=== PATIENT | female | born 1945 | race African-American/Black ===

== ENCOUNTER 2023-12-22 19:16 | Inpatient (IN) ==
--- NOTE | 2023-12-22 20:15 | DR.NAUSEAF ---
HPI Time Seen Time Seen by Provider: 12/22/23 20:15 Primary Care Physician Primary Care Physician: LIV Madsen Chief Complaint Doctors Comments: Patient had a Rt knee replaced at [facility] in [place] on 12/09/2023.When she was d/c from the hospital on 3 new medication: meloxicam 15mg po qd/bactrim ds/colace. Patient has had nausea and vomiting since 12/20/23. She has also had decreased activity. Family brought her to the hospital for evaluaton because they are concerned that she is not herself. Patient denies: haile,trauma or fall since the day after surgery, n,v,chest pain,abdl pain,back pain,sob. Chief Complaint:: PT AMBULATORY IN ED WITH C/O N/V SINCE SATURDAY. COVID-19 Coronavirus risk:travel/contact w/high risk person: No Has patient experienced Coronavirus symptoms: No Source History Provided: Patient and Family Member Mode of Arrival Mode of Arrival: Ambulatory Timing Onset of Chief Complaint: 12/20/23 PMH PMH Past Medical History: Yes Past Medical History: Anemia, Arthritis, Dyslipidemia, GERD, Hypertension and Hypothyroidism Past Surgical History: Yes Surgical History: Ortho Surgery Past Surgical History Comment: RIGHT KNEE Family History History of Family Medical Conditions: Yes Family Medical History: Diabetes Mellitus, Heart Failure and Hypertension Social History Does patient currently use any type of tobacco product: No Have you used tobacco products in the last 12 months: No Type of Tobacco Use: None Does any household member use tobacco: No Alcohol Use: None Do you use any recreational Drugs:: No Lives With: Family Lives Where: Home Travel Risk Coronavirus risk:travel/contact w/high risk person: No Has patient experienced Coronavirus symptoms: No Infectious screening In the last 2 months have you had wt loss of >10#?: NO Have you had fever, night sweats or hemotysis?: No Have you traveled outside the country in the last 6 months?: No Isolation: Standard ROS Review of Systems Constitutional: Malaise and Other (decreased activity) Eyes: No Symptoms Reported ENTM: No Symptoms Reported Respiratoy: No Symptoms Reported Cardiovascular: No Symptoms Reported Gastrointestinal/Abdominal: Nausea and Vomiting Genitourinary: No Symptoms Reported Neurological: No Symptoms Reported Musculoskeletal: No Symptoms Reported Integumentary: No Symptoms Reported Hematologic/Lymphatic: No Symptoms Reported Endocrine: No Symptoms Reported Psychiatric: No Symptoms Reported All Other Systems: Reviewed and Negative PE Vital Signs Vitals: Vital Signs Temperature 98.8 F Pulse Rate 69 Pulse Rate 72 Pulse Rate 72 Pulse Rate 71 Pulse Rate 73 Pulse Rate 71 Pulse Rate 73 Pulse Rate 74 Pulse Rate 66 Pulse Rate 67 Pulse Rate 68 Pulse Rate 66 Pulse Rate 69 Pulse Rate 75 Pulse Rate 69 Pulse Rate 72 Pulse Rate 70 Pulse Rate 65 Pulse Rate 67 Respiratory Rate 21 Respiratory Rate 14 Respiratory Rate 14 Respiratory Rate 14 Respiratory Rate 20 Respiratory Rate 14 Respiratory Rate 24 Respiratory Rate 18 Respiratory Rate 16 Respiratory Rate 16 Respiratory Rate 15 Respiratory Rate 15 Respiratory Rate 16 Respiratory Rate 21 Respiratory Rate 18 Respiratory Rate 16 Respiratory Rate 18 Respiratory Rate 15 Respiratory Rate 20 Blood Pressure 170/73 Blood Pressure 170/73 Blood Pressure 162/72 O2 Sat by Pulse Oximetry 95 General Limitations: No Limitations General Appearance: Alert and In No Apparent Distress Head Head Exam: Normal Inspection Eyes Eye exam: Normal Appearance ENT ENT Exam: Normal Exam Neck Neck Exam: Normal Inspection Chest Chest Inspection: Normal Inspection Respiratory Respiratory Exam: Normal Lung Sounds Bilat Respiratory Exam: Bilateral: Clear to Auscultation Cardiovascular Cardiovascular Exam: Regular Rate and Normal Rhythm Abdominal Exam Abdominal Exam: Normal Inspection, Normal Bowel Sounds and Soft Rectal Rectal Exam: Deferred External Exam: Female: Deferred : Speculum Exam (Female): Deferred : Bimanual Exam (female): Deferred Extremities Extremities Exam: Normal Inspection Back Back Exam: Normal Inspection Neurologic Neurological Exam: Alert and Oriented X3 Psychiatric Psychiatric Exam: Normal Affect and Normal Mood Skin Skin Exam: Warm, Dry, Intact and Normal Color MDM Differential Diagnosis Differential Diagnosis: Considerations may Include:: Drug Toxicity Differential Diagnosis Comment: DDx: electrolyte disorder,SOPHIE,dehydration COURSE Treatment Treatment: Patient was brought to a monitored room and iv access was initiated and labs were drawn. Patient's K was called from the lab it was 6.3.The repeat K was also 6.3. Patient 's ekg was NSR no QRS widening. Patient received: Calcium gluconate/regular insulin iv/Amp of D50 iv/amp Na HC03 iv. Patient's repeat BMP revealed K 5.1/Bun 49/creat 3.82. Discussed case with Dr Stein. He has accpted patint to his service for further treatment. Will hold the bactrim ds and meloxicam. Concerned that these 2 meds may have contributed to the SOPHIE in addition to dehydration. ROR Labs Reviewed 12/22/23 20:30 12/23/23 00:20 Laboratory: WBC 10.3 X10^3/uL (3.6-10.0) H 12/22/23 20:30 RBC 2.66 X10^6/uL (3.5-5.4) L 12/22/23 20:30 Hgb 8.6 g/dL (12.0-16.0) L 12/22/23 20:30 Hct 25.2 % (36.0-47.0) L 12/22/23 20:30 MCV 94.8 fL (80.0-100.0) 12/22/23 20:30 MCH 32.2 pg (27.0-34.0) 12/22/23 20: MCHC 34.0 g/dL (33.0-35.0) 12/22/23 20:30 RDW 13.4 % (11.6-16.5) 12/22/23 20:30 Plt Count 277 X10^3/uL (150.0-450.0) 12/22/23 20:30 MPV 7.2 fL (7.4-11.0) L 12/22/23 20:30 Neut % (Auto) 60.9 % (42.0-75.0) 12/22/23 20:30 Lymph % (Auto) 27.0 % (21.0-51.0) 12/22/23 20:30 [place] % (Auto) 9.8 % (0.0-13.0) 12/22/23 20:30 Eos % (Auto) 2.1 % (0.9-2.9) 12/22/23 20:30 Baso % (Auto) 0.2 % (0.2-1.0) 12/22/23 20:30 Neut # (Auto) 6.3 x10^3/uL (2.2-4.8) H 12/22/23 20:30 Lymph # (Auto) 2.8 X10^3/uL (1.3-2.9) 12/22/23 20:30 [place] # (Auto) 1.0 x10^3/uL (0.3-0.8) H 12/22/23 20:30 Eos # (Auto) 0.2 x10^3/uL (0.0-0.2) 12/22/23 20:30 Baso # (Auto) 0.0 X10^3/uL (0.0-0.1) 12/22/23 20:30 Absolute Nucleated RBC 0.0 /100WBC 12/22/23 20:30 Sodium 140 mmol/L (136-145) 12/23/23 00:20 Corrected Sodium TNP 12/23/23 00:20 Potassium 5.1 mmol/L (3.5-5.1) 12/23/23 00:20 Chloride 106 mmol/L (98-107) 12/23/23 00:20 Carbon Dioxide 23.7 mmol/L (21-32) 12/23/23 00:20 BUN 49 mg/dL (7-18) H 12/23/23 00:20 Creatinine 3.82 mg/dL (0.55-1.02) H 12/23/23 00:20 Est GFR (MDRD) Af Amer 15 (>60) L 12/23/23 00:20 Est GFR (MDRD) Non-Af 12 (>60) L 12/23/23 00:20 Glucose 72 mg/dL (65-99) 12/23/23 00:20 Lactic Acid 1.5 mmol/L (0.4-2.0) 12/22/23 20:30 Calcium 9.4 mg/dL (8.5-10.1) 12/23/23 00:20 Corrected Calcium TNP 12/22/23 20:30 Total Bilirubin 0.10 mg/dL (0.2-1.0) L 12/22/23 20:30 AST 18 Units/L (15-37) 12/22/23 20:30 ALT 12 Units/L (12-78) 12/22/23 20:30 Alkaline Phosphatase 104 Units/L (46-116) 12/22/23 20:30 Total Protein 7.3 g/dL (6.4-8.2) 12/22/23 20:30 Albumin 3.5 g/dL (3.4-5.0) 12/22/23 20:30 Globulin 3.8 g/dL (2.5-4.5) 12/22/23 20:30 Albumin/Globulin Ratio 0.9 Ratio (1.1-2.1) L 12/22/23 20:30 Amylase 85 Units/L (25-115) 12/22/23 20:30 Lipase 53 Units/L (16-77) 12/22/23 20:30 Opioid Opioid Risk Tool Age ([place] box if 16-45): No History of Preadolescent Sexual Abuse: No Total: 0 Total Score Risk Category: Low Risk Copyright: Kip HAM predicting aberrant behaviors Discharge Plan Diagnosis Discharge Problem: SOPHIE (acute kidney injury), Acute hyperkalemia, Acute dehydration Discharge Plan Patient Disposition: ADMITTED INPATIENT Condition: Stable Prescriptions: No Action latanoprost 0.005 % drops 1 drp OPHTHALMIC (EYE) QPM gabapentin 600 mg tablet 300 mg PO TID meloxicam 15 mg tablet 15 mg PO QDAY lovastatin 40 mg tablet 40 mg PO QPM sulfamethoxazole-trimethoprim 800-160 mg tablet 1 tab PO BID pantoprazole 40 mg tablet,delayed release (DR/EC) 40 mg PO QDAY ferrous sulfate [FeroSul] 325 mg (65 mg iron) tablet 325 mg PO BID levothyroxine 125 mcg tablet 125 mcg PO QAM lisinopril-hydrochlorothiazide 20-25 mg tablet 1 tab PO QDAY montelukast 10 mg tablet 10 mg PO QDAY Health Concerns: Post Hospitalization: new medications and changes needed to prevent readmission or further decline. Pt educated and given instructions on all concerns. Plan of Treatment: Continue with present treatment and follow up plan. Pt is to keep follow up appointment as instructed and take medications as ordered. Orders to Discharge Patient Discharge Orders: Transfer (Routine); Ordered 12/23/23 Ordered By: Katelynn Yin Follow ups/Referrals Follow ups/Referrals: MANPREET PECK [Primary Care Provider] - 3 days Instructions Stand Alone Forms: Post Hospital Follow Up Care
[2023-12-22 20:37] LABS: BASOPHILS % (AUTO) 0.2 % (0.2-1.0); EOSINOPHILS # (AUTO) 0.2 x10^3/uL (0.0-0.2); EOSINOPHILS % (AUTO) 2.1 % (0.9-2.9); HEMATOCRIT 25.2 % (36.0-47.0); HEMOGLOBIN 8.6 g/dL (12.0-16.0); LYMPHOCYTES # (AUTO) 2.8 X10^3/uL (1.3-2.9); MEAN CORPUSCULAR HEMOGLOBIN 32.2 pg (27.0-34.0); MEAN CORPUSCULAR VOLUME 94.8 fL (80.0-100.0); MEAN PLATELET VOLUME 7.2 fL (7.4-11.0); MONOCYTES % (AUTO) 9.8 % (0.0-13.0); NEUTROPHILS # (AUTO) 6.3 x10^3/uL (2.2-4.8); NEUTROPHILS % (AUTO) 60.9 % (42.0-75.0); PLATELET COUNT 277 X10^3/uL (150.0-450.0); RED BLOOD COUNT 2.66 X10^6/uL (3.5-5.4); RED CELL DISTRIBUTION WIDTH 13.4 % (11.6-16.5); WHITE BLOOD COUNT 10.3 X10^3/uL (3.6-10.0)
[2023-12-22 20:51] LABS: ALANINE AMINOTRANSFERASE 12 Units/L (12-78); ALBUMIN 3.5 g/dL (3.4-5.0); ALKALINE PHOSPHATASE 104 Units/L (46-116); AMYLASE 85 Units/L (25-115); ASPARTATE AMINO TRANSFERASE 18 Units/L (15-37); BLOOD UREA NITROGEN 52 mg/dL (7-18); CALCIUM 9.3 mg/dL (8.5-10.1); CARBON DIOXIDE 26.4 mmol/L (21-32); CHLORIDE 104 mmol/L (98-107); COR NA(FOR HYPERGLY) 138 mmol/L (136-145); CREATININE 4.02 mg/dL (0.55-1.02); GLUCOSE 116 mg/dL (65-99); LIPASE 53 Units/L (16-77); POTASSIUM 6.3 mmol/L (3.5-5.1); SODIUM 138 mmol/L (136-145); TOTAL PROTEIN 7.3 g/dL (6.4-8.2); eGFR NON BLACK RACES 11 (>60)
--- NOTE | 2023-12-22 21:40 | CT ---
CT ABDOMEN AND PELVIS WITHOUT CONTRAST HISTORY: Nausea vomiting and diarrhea with pain COMPARISON: None TECHNIQUE: Axial images were obtained of the abdomen and pelvis without IV contrast. Sagittal and coronal reform atted images were provided. All images were reviewed in a variety of windows and levels. RADIATION REDUCTION TECHNIQUE: Automated exposure control, adjustment of the mA or kV according to pa tient size, or iterative reconstruction techniques were used. FINDINGS: Please note that lack of IV contrast does limit evaluation of the soft tissues and vascular detail. The visualized lower lung zones are clear. The heart size is within normal limits. There is no evide nce of a pericardial effusion. The liver, spleen, pancreas, adrenal glands, and kidneys are grossly unremarkable. The gallbladder is grossly unremarkable. Calcified degenerating leiomyomatous uterus is noted. There is no evidence of stones or signs of obstructive uropathy. The stomach, small bowel, and colon are grossly unremarkable. There are no inflammatory changes in th e right lower quadrant to suggest secondary signs of acute appendicitis. The appendix is normal. Mode rate to large amount of fecal material is seen throughout the GI tract suggesting constipation. There is no evidence of retroperitoneal or mesenteric lymphadenopathy. The visualized bones demonstrate degenerative changes. There are no concerning lytic or blastic lesio ns identified. IMPRESSION: 1. There is no evidence of stones or signs of obstructive uropathy. 2. Calcified degenerating leiomyomatous uterus is noted. 3. Moderate to large amount of fecal material is seen throughout the GI tract suggesting constipation . THIS IS AN ELECTRONICALLY VERIFIED FINAL REPORT 12/22/2023 9:36 PM - Electronically signed by Christopher Gunn MD
--- NOTE | 2023-12-22 22:10 | EKG ---
Test Reason : hyperkalemia Blood Pressure : */* mmHG Vent. Rate : 70 BPM Atrial Rate : 70 BPM P-R Int : 152 ms QRS Dur : 84 ms QT Int : 382 ms P-R-T Axes : 67 -6 43 degrees QTc Int : 412 ms Normal sinus rhythm Minimal voltage criteria for LVH, may be normal variant ( R in aVL ) Cannot rule out Anterior infarct , age undetermined Abnormal ECG No previous ECGs available Confirmed by Andreas Naik MD ([id number]) on 12/23/2023 6:05:51 AM Referred By: Confirmed By: Andreas Naik MD
[2023-12-22] MEDS: SODIUM BICARBONATE 8.4% INJ ADULT IVP ONE (22:24)
[2023-12-22] MEDS: CALCIUM GLUCONATE 10% 1 G in NS 100 ML IV 100 ML IV ONE (22:24)
[2023-12-22] MEDS: D50W ABBOJECT SYR IV ONE (22:24)
[2023-12-22] MEDS: NovoLIN R (or HumuLIN R) IV PRN (22:25)
[2023-12-23 01:14] LABS: BLOOD UREA NITROGEN 49 mg/dL (7-18); CALCIUM 9.4 mg/dL (8.5-10.1); CARBON DIOXIDE 23.7 mmol/L (21-32); CHLORIDE 106 mmol/L (98-107); CREATININE 3.82 mg/dL (0.55-1.02); GLUCOSE 72 mg/dL (65-99); POTASSIUM 5.1 mmol/L (3.5-5.1); SODIUM 140 mmol/L (136-145); eGFR NON BLACK RACES 12 (>60)
[2023-12-23] MEDS ORDERED: CONSULT PHARMACY - POTASSIUM & MAGNESIUM XX SCH (03:00)
[2023-12-23 03:13] LABS: BILIRUBIN,URINE NEGATIVE (NEGATIVE); BLOOD/HEMOGLOBIN,URINE 1+ (NEGATIVE); GLUCOSE, URINE NEGATIVE (NEGATIVE); KETONES,URINE NEGATIVE (NEGATIVE); LEUKOCYTE ESTERASE ,URINE 3+ (NEGATIVE); NITRITES,URINE NEGATIVE (NEGATIVE); PROTEIN,URINE 1+ (NEGATIVE); UROBILINOGEN,URINE NORMAL (NORMAL)
[2023-12-23 03:20] VITALS: BMI 33.3
[2023-12-23 03:28] LABS: APPEARANCE,URINE CLOUDY (CLEAR); BACTERIA,URINE 1+ /HPF (NEGATIVE); COLOR,URINE YELLOW (YELLOW); SQUAMOUS EPITHELIAL CELL,UR MANY /HPF (NEGATIVE)
[2023-12-23] MEDS: NS 1,000 ML IV 1,000 ML IV SCH ×2 (03:56→14:58)
[2023-12-23] MEDS: NEURONTIN TAB 600 MG PO SCH (05:08)
[2023-12-23 05:45] LABS: BASOPHILS % (AUTO) 0.4 % (0.2-1.0); EOSINOPHILS # (AUTO) 0.2 x10^3/uL (0.0-0.2); EOSINOPHILS % (AUTO) 1.8 % (0.9-2.9); HEMATOCRIT 31.1 % (36.0-47.0); HEMOGLOBIN 10.2 g/dL (12.0-16.0); LYMPHOCYTES # (AUTO) 2.1 X10^3/uL (1.3-2.9); LYMPHOCYTES % (AUTO) 21.8 % (21.0-51.0); MEAN CORPUSCULAR HEMOGLOBIN 31.3 pg (27.0-34.0); MEAN CORPUSCULAR HGB CONC 32.9 g/dL (33.0-35.0); MEAN CORPUSCULAR VOLUME 95.1 fL (80.0-100.0); MEAN PLATELET VOLUME 8.2 fL (7.4-11.0); MONOCYTES # (AUTO) 0.8 x10^3/uL (0.3-0.8); MONOCYTES % (AUTO) 8.2 % (0.0-13.0); NEUTROPHILS # (AUTO) 6.5 x10^3/uL (2.2-4.8); NEUTROPHILS % (AUTO) 67.8 % (42.0-75.0); PLATELET COUNT 225 X10^3/uL (150.0-450.0); RED BLOOD COUNT 3.27 X10^6/uL (3.5-5.4); RED CELL DISTRIBUTION WIDTH 13.8 % (11.6-16.5); WHITE BLOOD COUNT 9.6 X10^3/uL (3.6-10.0)
[2023-12-23 05:50] LABS: ALANINE AMINOTRANSFERASE 13 Units/L (12-78); ALBUMIN 3.4 g/dL (3.4-5.0); ALKALINE PHOSPHATASE 108 Units/L (46-116); ASPARTATE AMINO TRANSFERASE 26 Units/L (15-37); BLOOD UREA NITROGEN 48 mg/dL (7-18); CALCIUM 9.5 mg/dL (8.5-10.1); CARBON DIOXIDE 24.3 mmol/L (21-32); CHLORIDE 105 mmol/L (98-107); CREATININE 3.67 mg/dL (0.55-1.02); GLUCOSE 86 mg/dL (65-99); SODIUM 140 mmol/L (136-145); TOTAL PROTEIN 7.1 g/dL (6.4-8.2); eGFR NON BLACK RACES 13 (>60)
[2023-12-23 06:02] LABS: POTASSIUM 5.9 mmol/L (3.5-5.1)
[2023-12-23] MEDS: FERROUS GLUCONATE PO SCH (06:07)
[2023-12-23] MEDS: KAYEXALATE SUSP PO SCH (08:48)
[2023-12-23] MEDS: NS 1,000 ML IV 1,000 ML IV ONE (08:49)
[2023-12-23] MEDS: SYNTHROID 125 mcg TAB PO SCH (08:49)
[2023-12-23] MEDS: PROTONIX TAB 40 MG PO SCH (08:50)
[2023-12-23] MEDS: SINGULAIR TAB 10 MG PO SCH (08:50)
[2023-12-23] MEDS: ZESTORETIC 20/25 MG PO SCH (08:50)
--- NOTE | 2023-12-23 09:18 | DR.H&P ---
H&P History & Physical for Day of: H&P Date: 12/23/23 Chief Complaint Chief Complaint: Not acting right History of Present Illness History of Present Illness: Patient brought from home by family to the ER due to concerns about "not acting right." She had a right TKA earlier this month and was discharged home from the ambulatory surgery center. She seemed to be doing well and in her usual state of health until the last couple days. She admits to not drinking much water but has been taking her medications as prescribed which included meloxicam. In the ER she was found to have mild anemia, hyperkalemia, and an SOPHIE. She has been receiving fluids and a dose of Kayexalate. She reports that she is feeling better right now and would like to eat breakfast. Denies any issues with knee pain at the moment. PMH reviewed. ROS: 12 point ROS negative except as noted in HPI. PE: WD, WN, elderly female in NAD. EOMI. Head NCAT. Hearing intact conversation. Heart RRR. Lungs CTA BL. Belly soft, NT, ND, BS positive. Mood affect appropriate. Skin with decreased turgor but appropriate color. Right knee with appropriate appearing surgical incision. Past Medical History Past Medical History: Anemia, Arthritis, Dyslipidemia, GERD, Hypertension and Hypothyroidism Past Surgical History Surgical History: DRY [employer] Surgery and Ortho Surgery Family History Family Medical History: Diabetes Mellitus and Hypertension Social History Does patient currently use any type of tobacco product: No Have you used tobacco products in the last 12 months: No Type of Tobacco Use: None Does any household member use tobacco: No Alcohol Use: None Drug Use: None Medications Home Medications: Home Medications Medication Instructions Recorded Confirmed Type ferrous sulfate 325 mg (65 mg 325 mg PO BID 12/22/23 12/22/23 History iron) tablet (FeroSul) gabapentin 600 mg tablet 300 mg PO TID 12/22/23 12/22/23 History latanoprost 0.005 % eye drops 1 drp ophthalmic (eye) QPM 12/22/23 12/22/23 History levothyroxine 125 mcg tablet 125 mcg PO QAM 12/22/23 12/22/23 History lisinopril 20 1 tab PO QDAY 12/22/23 12/22/23 History mg-hydrochlorothiazide 25 mg tablet lovastatin 40 mg tablet 40 mg PO QPM 12/22/23 12/22/23 History meloxicam 15 mg tablet 15 mg PO QDAY 12/22/23 12/22/23 History montelukast 10 mg tablet 10 mg PO QDAY 12/22/23 12/22/23 History pantoprazole 40 mg tablet,delayed 40 mg PO QDAY 12/22/23 12/22/23 History release sulfamethoxazole 800 1 tab PO BID 12/22/23 12/22/23 History mg-trimethoprim 160 mg tablet Allergies Allergies Allergy/AdvReac Type Severity Reaction Status Date / Time aspirin Allergy Verified 12/22/23 19:36 tramadol Allergy Verified 12/22/23 19:36 Labs 12/23/23 05:24 12/23/23 05:24 Labs: Laboratory WBC 9.6 X10^3/uL (3.6-10.0) 12/23/23 05:24 RBC 3.27 X10^6/uL (3.5-5.4) L 12/23/23 05:24 Hgb 10.2 g/dL (12.0-16.0) L 12/23/23 05:24 Hct 31.1 % (36.0-47.0) L 12/23/23 05:24 MCV 95.1 fL (80.0-100.0) 12/23/23 05:24 MCH 31.3 pg (27.0-34.0) 12/23/23 05:24 MCHC 32.9 g/dL (33.0-35.0) L 12/23/23 05:24 RDW 13.8 % (11.6-16.5) 12/23/23 05:24 Plt Count 225 X10^3/uL (150.0-450.0) 12/23/23 05:24 MPV 8.2 fL (7.4-11.0) 12/23/23 05:24 Neut % (Auto) 67.8 % (42.0-75.0) 12/23/23 05:24 Lymph % (Auto) 21.8 % (21.0-51.0) 12/23/23 05:24 [place] % (Auto) 8.2 % (0.0-13.0) 12/23/23 05:24 Eos % (Auto) 1.8 % (0.9-2.9) 12/23/23 05:24 Baso % (Auto) 0.4 % (0.2-1.0) 12/23/23 05:24 Neut # (Auto) 6.5 x10^3/uL (2.2-4.8) H 12/23/23 05:24 Lymph # (Auto) 2.1 X10^3/uL (1.3-2.9) 12/23/23 05:24 [place] # (Auto) 0.8 x10^3/uL (0.3-0.8) 12/23/23 05:24 Eos # (Auto) 0.2 x10^3/uL (0.0-0.2) 12/23/23 05:24 Baso # (Auto) 0.0 X10^3/uL (0.0-0.1) 12/23/23 05:24 Absolute Nucleated RBC 0.2 /100WBC 12/23/23 05:24 Sodium 140 mmol/L (136-145) 12/23/23 05:24 Corrected Sodium TNP 12/23/23 05:24 Potassium 5.9 mmol/L (3.5-5.1) H 12/23/23 05:24 Chloride 105 mmol/L (98-107) 12/23/23 05:24 Carbon Dioxide 24.3 mmol/L (21-32) 12/23/23 05:24 BUN 48 mg/dL (7-18) H 12/23/23 05:24 Creatinine 3.67 mg/dL (0.55-1.02) H 12/23/23 05:24 Est GFR (MDRD) Af Amer 15 (>60) L 12/23/23 05:24 Est GFR (MDRD) Non-Af 13 (>60) L 12/23/23 05:24 Glucose 86 mg/dL (65-99) 12/23/23 05:24 Lactic Acid 1.5 mmol/L (0.4-2.0) 12/22/23 20:30 Calcium 9.5 mg/dL (8.5-10.1) 12/23/23 05:24 Corrected Calcium TNP 12/23/23 05:24 Magnesium 3.2 mg/dL (2.0-2.9) H 12/23/23 05:24 Total Bilirubin 0.20 mg/dL (0.2-1.0) 12/23/23 05:24 AST 26 Units/L (15-37) 12/23/23 05:24 ALT 13 Units/L (12-78) 12/23/23 05:24 Alkaline Phosphatase 108 Units/L (46-116) 12/23/23 05:24 Creatine Kinase 153 Units/L (26-192) 12/23/23 00:20 Total Protein 7.1 g/dL (6.4-8.2) 12/23/23 05:24 Albumin 3.4 g/dL (3.4-5.0) 12/23/23 05:24 Globulin 3.7 g/dL (2.5-4.5) 12/23/23 05:24 Albumin/Globulin Ratio 0.9 Ratio (1.1-2.1) L 12/23/23 05:24 Amylase 85 Units/L (25-115) 12/22/23 20:30 Lipase 53 Units/L (16-77) 12/22/23 20:30 Specimen Type Clean catch urine 12/23/23 02:55 Urine Color Yellow (YELLOW) 12/23/23 02:55 Urine Appearance Cloudy (CLEAR) 12/23/23 02:55 Urine pH 7.0 (5.0 - 8.0) 12/23/23 02:55 Ur Specific [place] 1.010 (1.000-1.030) 12/23/23 02:55 Urine Protein 1+ (NEGATIVE) 12/23/23 02:55 Urine Glucose (UA) Negative (NEGATIVE) 12/23/23 02:55 Urine Ketones Negative (NEGATIVE) 12/23/23 02:55 Urine Blood 1+ (NEGATIVE) 12/23/23 02:55 Urine Nitrite Negative (NEGATIVE) 12/23/23 02:55 Urine Bilirubin Negative (NEGATIVE) 12/23/23 02:55 Urine Urobilinogen Normal (NORMAL) 12/23/23 02:55 Ur Leukocyte Esterase 3+ (NEGATIVE) 12/23/23 02:55 Urine RBC 3-5 /HPF (0-3) A 12/23/23 02:55 Urine WBC 30-50 /HPF (0-5) A 12/23/23 02:55 Ur Squamous Epith Cells Many /HPF (NEGATIVE) 12/23/23 02:55 Amorphous Sediment 1+ /HPF (NEGATIVE) 12/23/23 02:55 Urine Bacteria 1+ /HPF (NEGATIVE) 12/23/23 02:55 Urine Mucus Few /HPF (NEGATIVE) 12/23/23 02:55 Ur Culture Indicated? No/not indicated 12/23/23 02:55 Physical Exam Vital Signs: Vital Signs Temperature 97.9 F Temperature 98.2 F Pulse Rate [Left Radial] 74 Pulse Rate [Left Radial] 75 Pulse Rate 69 Pulse Rate 72 Respiratory Rate 19 Respiratory Rate 20 Respiratory Rate 21 Respiratory Rate 14 Blood Pressure [Left Arm] 164/62 Blood Pressure [Left Arm] 162/62 Blood Pressure [Left Arm] 200/82 O2 Sat by Pulse Oximetry 99 O2 Sat by Pulse Oximetry 98 Assessment/Plan (1) SOPHIE (acute kidney injury): Narrative Support Text: Increase IV fluids from 80-1 25 for the next 8 hours. Repeat BMP in 4 hours. Uncertain baseline. Status: Acute (2) Acute hyperkalemia: Narrative Support Text: Dose of Kayexalate now. Dose of Kayexalate at lunch. Status: Acute (3) Acute dehydration: Narrative Support Text: See above. Status: Acute (4) Mild anemia: Narrative Support Text: Uncertain if acute or chronic. May be postop or anemia of chronic disease. Will continue to monitor. Transfuse as needed. Status: Acute
[2023-12-23 11:07] LABS: BLOOD UREA NITROGEN 47 mg/dL (7-18); CALCIUM 9.4 mg/dL (8.5-10.1); CARBON DIOXIDE 25.2 mmol/L (21-32); CHLORIDE 106 mmol/L (98-107); CREATININE 3.54 mg/dL (0.55-1.02); GLUCOSE 99 mg/dL (65-99); SODIUM 139 mmol/L (136-145); eGFR NON BLACK RACES 13 (>60)
[2023-12-23 11:10] LABS: POTASSIUM 6.4 mmol/L (3.5-5.1)
[2023-12-23] MEDS: LINZESS PO ONE (12:28)
[2023-12-23] MEDS: CATAPRES TAB 0.1 MG PO ONE (12:59)
[2023-12-23] MEDS ORDERED: NS + KCL 20 MEQ/L 1,000 ML IV SCH (16:30)
[2023-12-23] MEDS ORDERED: CATAPRES-TTS-1 TD SCH (18:00)
[2023-12-23] MEDS ORDERED: PATIENT'S HOME MEDICATION (Lovastatin 40 mg tablet) PO SCH (21:00)
[2023-12-23] MEDS: LOVENOX INJ 30 MG SYR SC SCH (22:19)
[2023-12-23] MEDS: TOPROL XL PO SCH (22:19)
[2023-12-23] MEDS: LIPITOR TAB 10 MG PO SCH (22:19)
[2023-12-23] MEDS: XALATAN OP SCH (22:19)
[2023-12-23] MEDS: CATAPRES-TTS-1 TD SCH (22:50)
[2023-12-24 06:18] LABS: BASOPHILS % (AUTO) 0.1 % (0.2-1.0); EOSINOPHILS # (AUTO) 0.2 x10^3/uL (0.0-0.2); EOSINOPHILS % (AUTO) 2.9 % (0.9-2.9); HEMATOCRIT 21.8 % (36.0-47.0); HEMOGLOBIN 7.4 g/dL (12.0-16.0); LYMPHOCYTES # (AUTO) 2.2 X10^3/uL (1.3-2.9); LYMPHOCYTES % (AUTO) 30.3 % (21.0-51.0); MEAN CORPUSCULAR HEMOGLOBIN 31.8 pg (27.0-34.0); MEAN CORPUSCULAR HGB CONC 33.7 g/dL (33.0-35.0); MEAN CORPUSCULAR VOLUME 94.4 fL (80.0-100.0); MEAN PLATELET VOLUME 7.5 fL (7.4-11.0); MONOCYTES # (AUTO) 0.7 x10^3/uL (0.3-0.8); MONOCYTES % (AUTO) 10.1 % (0.0-13.0); NEUTROPHILS # (AUTO) 4.2 x10^3/uL (2.2-4.8); NEUTROPHILS % (AUTO) 56.6 % (42.0-75.0); PLATELET COUNT 237 X10^3/uL (150.0-450.0); RED BLOOD COUNT 2.31 X10^6/uL (3.5-5.4); RED CELL DISTRIBUTION WIDTH 13.5 % (11.6-16.5); WHITE BLOOD COUNT 7.4 X10^3/uL (3.6-10.0)
[2023-12-24 06:34] LABS: ALANINE AMINOTRANSFERASE 10 Units/L (12-78); ALBUMIN 2.8 g/dL (3.4-5.0); ALKALINE PHOSPHATASE 95 Units/L (46-116); ASPARTATE AMINO TRANSFERASE 16 Units/L (15-37); BLOOD UREA NITROGEN 37 mg/dL (7-18); CALCIUM 8.6 mg/dL (8.5-10.1); CARBON DIOXIDE 24.4 mmol/L (21-32); CHLORIDE 109 mmol/L (98-107); COR CA(FOR HYPOALB) 9.6 mg/dL (8.5-10.1); CREATININE 2.78 mg/dL (0.55-1.02); GLUCOSE 81 mg/dL (65-99); MAGNESIUM 2.5 mg/dL (2.0-2.9); POTASSIUM 5.2 mmol/L (3.5-5.1); SODIUM 141 mmol/L (136-145); eGFR NON BLACK RACES 18 (>60)
[2023-12-24] MEDS ORDERED: LINZESS PO SCH (09:00)
--- NOTE | 2023-12-24 13:15 | NOTE.SOAP ---
Soap Note Note for Day of Date of Exam: 12/24/23 Subjective Data Subjective Data: Patient seen for morning visit with nurse at bedside. Blood pressure did a little better overnight but is elevated this morning. Kidney function is greatly improved with near resolution of her hyperkalemia. Appetite is good and she had a large bowel movement yesterday. Hemoglobin did drop almost 3 g. Objective Data Objective Data: COPD, WN female in NAD. Head NCAT. Hearing intact conversation. EOMI. Heart regular rate and rhythm. Lungs are clear bilaterally. Belly is soft and nontender with bowel sounds present. Mood and affect are appropriate. Alert and oriented x 4. Assessment Assessment: 1. SOPHIE-improving. Continue IV fluids. Continue low potassium diet. 2. Hyperkalemia-improving. Continue IV fluids. 3. Acute on chronic anemia. Monitor closely. Transfuse to keep hemoglobin greater than 7. Likely a combination of chronic disease, recent surgery, and large bowel movement.
[2023-12-24] MEDS: NEURONTIN CAP 100 MG PO SCH (13:21)
[2023-12-24 16:42] LABS: ALANINE AMINOTRANSFERASE 14 Units/L (12-78); ALBUMIN 2.9 g/dL (3.4-5.0); ALKALINE PHOSPHATASE 99 Units/L (46-116); ASPARTATE AMINO TRANSFERASE 17 Units/L (15-37); BLOOD UREA NITROGEN 37 mg/dL (7-18); CALCIUM 8.4 mg/dL (8.5-10.1); CARBON DIOXIDE 21.2 mmol/L (21-32); CHLORIDE 108 mmol/L (98-107); COR CA(FOR HYPOALB) 9.3 mg/dL (8.5-10.1); CREATININE 2.58 mg/dL (0.55-1.02); GLUCOSE 84 mg/dL (65-99); POTASSIUM 5.4 mmol/L (3.5-5.1); SODIUM 139 mmol/L (136-145); TOTAL PROTEIN 6.2 g/dL (6.4-8.2); eGFR NON BLACK RACES 19 (>60)
[2023-12-24] MEDS ORDERED: NS 1,000 ML IV 1,000 ML IV SCH (17:00)
[2023-12-24] MEDS: KAYEXALATE SUSP PO ONE (17:42)
[2023-12-24 21:44] VITALS: RESP 20
[2023-12-25] MEDS: NS 1,000 ML IV 1,000 ML IV SCH (00:44)
[2023-12-25 06:02] LABS: BASOPHILS % (AUTO) 0.3 % (0.2-1.0); EOSINOPHILS # (AUTO) 0.2 x10^3/uL (0.0-0.2); HEMATOCRIT 21.5 % (36.0-47.0); HEMOGLOBIN 7.3 g/dL (12.0-16.0); LYMPHOCYTES # (AUTO) 2.5 X10^3/uL (1.3-2.9); LYMPHOCYTES % (AUTO) 34.2 % (21.0-51.0); MEAN CORPUSCULAR HEMOGLOBIN 31.9 pg (27.0-34.0); MEAN CORPUSCULAR VOLUME 93.9 fL (80.0-100.0); MEAN PLATELET VOLUME 6.9 fL (7.4-11.0); MONOCYTES # (AUTO) 0.7 x10^3/uL (0.3-0.8); MONOCYTES % (AUTO) 8.8 % (0.0-13.0); NEUTROPHILS % (AUTO) 53.7 % (42.0-75.0); PLATELET COUNT 226 X10^3/uL (150.0-450.0); RED BLOOD COUNT 2.29 X10^6/uL (3.5-5.4); RED CELL DISTRIBUTION WIDTH 13.3 % (11.6-16.5); WHITE BLOOD COUNT 7.4 X10^3/uL (3.6-10.0)
[2023-12-25 06:17] LABS: ALANINE AMINOTRANSFERASE 13 Units/L (12-78); ALBUMIN 2.7 g/dL (3.4-5.0); ALKALINE PHOSPHATASE 85 Units/L (46-116); ASPARTATE AMINO TRANSFERASE 17 Units/L (15-37); BLOOD UREA NITROGEN 33 mg/dL (7-18); CARBON DIOXIDE 21.6 mmol/L (21-32); CHLORIDE 108 mmol/L (98-107); CREATININE 2.19 mg/dL (0.55-1.02); GLUCOSE 81 mg/dL (65-99); POTASSIUM 4.3 mmol/L (3.5-5.1); SODIUM 140 mmol/L (136-145); TOTAL PROTEIN 5.8 g/dL (6.4-8.2); eGFR NON BLACK RACES 23 (>60)
--- NOTE | 2023-12-25 10:27 | NOTE.SOAP ---
Soap Note Note for Day of Date of Exam: 12/25/23 Subjective Data Subjective Data: Patient seen for morning rounds. Potassium now normal. Serum creatinine with further improvement. Hemoglobin overall stable at 7.3. She has been eating well but admits she is still not drinking a lot of water. No acute events overnight. Has Ortho follow-up tomorrow. Objective Data Objective Data: COPD, WN female in NAD. Sitting on edge of bed eating breakfast. Head NCAT. Hearing intact conversation. Alert and oriented x 4. Heart RRR. Lungs CTA. Belly soft with bowel sounds present. Assessment Assessment: 1. SOPHIE-improving. Continue IV hydration. Stressed the need for p.o. hydration especially for discharge. 2. hyperkalemia-resolved. Monitor. Repeat BMP at lunch today. 3. HTN-uncontrolled. Add amlodipine 10 mg daily. She will need to follow-up with her PCP for tighter control at home.
[2023-12-25] MEDS: NORVASC TAB 10 MG PO SCH (11:15)
[2023-12-25 12:24] LABS: BLOOD UREA NITROGEN 31 mg/dL (7-18); CALCIUM 8.3 mg/dL (8.5-10.1); CARBON DIOXIDE 22.7 mmol/L (21-32); CHLORIDE 107 mmol/L (98-107); CREATININE 2.11 mg/dL (0.55-1.02); GLUCOSE 85 mg/dL (65-99); POTASSIUM 4.6 mmol/L (3.5-5.1); SODIUM 139 mmol/L (136-145); eGFR NON BLACK RACES 24 (>60)
[2023-12-25 15:59] VITALS: BP 173/69; PULSE 51; TEMP 98.1; O2SAT 100
--- NOTE | 2023-12-26 12:18 | PCM.DCPLAN ---
DISCHARGE SUMMARY Admission Date Date of Admission: 12/23/23 Discharge Date Discharge Date: 12/25/23 Admission Diagnoses (1) SOPHIE (acute kidney injury): Status: Acute (2) Acute hyperkalemia: Status: Acute (3) Acute dehydration: Status: Acute (4) Mild anemia: Status: Acute Discharge Medications Discharge Medications: Home Medication List ferrous sulfate 325 mg (65 mg iron) tablet (FeroSul) 325 mg PO BID 12/22/23 [History] gabapentin 600 mg tablet 300 mg PO TID 12/22/23 [History] latanoprost 0.005 % eye drops 1 drp ophthalmic (eye) QPM 12/22/23 [History] levothyroxine 125 mcg tablet 125 mcg PO QAM 12/22/23 [History] lisinopril 20 mg-hydrochlorothiazide 25 mg tablet 1 tab PO QDAY 12/22/23 [History] lovastatin 40 mg tablet 40 mg PO QPM 12/22/23 [History] montelukast 10 mg tablet 10 mg PO QDAY 12/22/23 [History] pantoprazole 40 mg tablet,delayed release 40 mg PO QDAY 12/22/23 [History] sulfamethoxazole 800 mg-trimethoprim 160 mg tablet 1 tab PO BID 12/22/23 [History] Prescriptions: Hospital Course Latest Lab Results: Laboratory Last Values WBC 7.4 X10^3/uL (3.6-10.0) 12/25/23 05:45 RBC 2.29 X10^6/uL (3.5-5.4) L 12/25/23 05:45 Hgb 7.3 g/dL (12.0-16.0) L 12/25/23 05:45 Hct 21.5 % (36.0-47.0) L 12/25/23 05:45 MCV 93.9 fL (80.0-100.0) 12/25/23 05:45 MCH 31.9 pg (27.0-34.0) 12/25/23 05:45 MCHC 34.0 g/dL (33.0-35.0) 12/25/23 05:45 RDW 13.3 % (11.6-16.5) 12/25/23 05:45 Plt Count 226 X10^3/uL (150.0-450.0) 12/25/23 05:45 MPV 6.9 fL (7.4-11.0) L 12/25/23 05:45 Neut % (Auto) 53.7 % (42.0-75.0) 12/25/23 05:45 Lymph % (Auto) 34.2 % (21.0-51.0) 12/25/23 05:45 [place] % (Auto) 8.8 % (0.0-13.0) 12/25/23 05:45 Eos % (Auto) 3.0 % (0.9-2.9) H 12/25/23 05:45 Baso % (Auto) 0.3 % (0.2-1.0) 12/25/23 05:45 Neut # (Auto) 4.0 x10^3/uL (2.2-4.8) 12/25/23 05:45 Lymph # (Auto) 2.5 X10^3/uL (1.3-2.9) 12/25/23 05:45 Wayne # (Auto) 0.7 x10^3/uL (0.3-0.8) 12/25/23 05:45 Eos # (Auto) 0.2 x10^3/uL (0.0-0.2) 12/25/23 05:45 Baso # (Auto) 0.0 X10^3/uL (0.0-0.1) 12/25/23 05:45 Absolute Nucleated RBC 0.0 /100WBC 12/25/23 05:45 Sodium 139 mmol/L (136-145) 12/25/23 12:05 Corrected Sodium TNP 12/25/23 12:05 Potassium 4.6 mmol/L (3.5-5.1) 12/25/23 12:05 Chloride 107 mmol/L (98-107) 12/25/23 12:05 Carbon Dioxide 22.7 mmol/L (21-32) 12/25/23 12:05 BUN 31 mg/dL (7-18) H 12/25/23 12:05 Creatinine 2.11 mg/dL (0.55-1.02) H 12/25/23 12:05 Est GFR (MDRD) Af Amer 29 (>60) L 12/25/23 12:05 Est GFR (MDRD) Non-Af 24 (>60) L 12/25/23 12:05 Glucose 85 mg/dL (65-99) 12/25/23 12:05 Lactic Acid 1.5 mmol/L (0.4-2.0) 12/22/23 20:30 Calcium 8.3 mg/dL (8.5-10.1) L 12/25/23 12:05 Corrected Calcium 9.0 mg/dL (8.5-10.1) 12/25/23 05:45 Magnesium 2.5 mg/dL (2.0-2.9) 12/24/23 05:40 Total Bilirubin 0.20 mg/dL (0.2-1.0) 12/25/23 05:45 AST 17 Units/L (15-37) 12/25/23 05:45 ALT 13 Units/L (12-78) 12/25/23 05:45 Alkaline Phosphatase 85 Units/L (46-116) 12/25/23 05:45 Creatine Kinase 153 Units/L (26-192) 12/23/23 00:20 Total Protein 5.8 g/dL (6.4-8.2) L 12/25/23 05:45 Albumin 2.7 g/dL (3.4-5.0) L 12/25/23 05:45 Globulin 3.1 g/dL (2.5-4.5) 12/25/23 05:45 Albumin/Globulin Ratio 0.9 Ratio (1.1-2.1) L 12/25/23 05:45 Amylase 85 Units/L (25-115) 12/22/23 20:30 Lipase 53 Units/L (16-77) 12/22/23 20:30 Specimen Type Clean catch urine 12/23/23 02:55 Urine Color Yellow (YELLOW) 12/23/23 02:55 Urine Appearance Cloudy (CLEAR) 12/23/23 02:55 Urine pH 7.0 (5.0 - 8.0) 12/23/23 02:55 Ur Specific [place] 1.010 (1.000-1.030) 12/23/23 02:55 Urine Protein 1+ (NEGATIVE) 12/23/23 02:55 Urine Glucose (UA) Negative (NEGATIVE) 12/23/23 02:55 Urine Ketones Negative (NEGATIVE) 12/23/23 02:55 Urine Blood 1+ (NEGATIVE) 12/23/23 02:55 Urine Nitrite Negative (NEGATIVE) 12/23/23 02:55 Urine Bilirubin Negative (NEGATIVE) 12/23/23 02:55 Urine Urobilinogen Normal (NORMAL) 12/23/23 02:55 Ur Leukocyte Esterase 3+ (NEGATIVE) 12/23/23 02:55 Urine RBC 3-5 /HPF (0-3) A 12/23/23 02:55 Urine WBC 30-50 /HPF (0-5) A 12/23/23 02:55 Ur Squamous Epith Cells Many /HPF (NEGATIVE) 12/23/23 02:55 Amorphous Sediment 1+ /HPF (NEGATIVE) 12/23/23 02:55 Urine Bacteria 1+ /HPF (NEGATIVE) 12/23/23 02:55 Urine Mucus Few /HPF (NEGATIVE) 12/23/23 02:55 Ur Culture Indicated? No/not indicated 12/23/23 02:55 Hospital Course: Patient admitted for acute kidney injury with hyperkalemia following recent right knee replacement. She had been taking Mobic without drinking a lot of water. She responded very well to aggressive hydration along with Kayexalate. The doses of Kayexalate did cause a couple of large bowel movements with sudden drop in hemoglobin that remained stable after initial drop. She steadily improved and was evaluated by PT who found her stable to discharge home. She was discharged home with strict instructions to stop Mobic, follow-up with PCP for repeat labs, and to keep her follow-up with orthopedics. Patient voiced understanding and was discharged home in improved, stable condition. Will need repeat BMP/CBC by PCP's office.
== END 2023-12-25 16:10 | disposition home or self-care (01) | DRG 684 ==
LOC: ER 19:16 → MED/SURG 12-23 02:32
PROVIDERS: ADMIT Family Medicine; ATTEND Family Medicine
DX: D64.89 Other specified anemias; I10 Essential (primary) hypertension; N17.8 Other acute kidney failure; Z98.890 Other specified postprocedural states; E78.5 Hyperlipidemia, unspecified; R26.89 Other abnormalities of gait and mobility; E83.42 Hypomagnesemia; R11.2 Nausea with vomiting, unspecified; E03.8 Other specified hypothyroidism; E87.5 Hyperkalemia; K21.9 Gastro-esophageal reflux disease without esophagitis; E86.0 Dehydration